=== PATIENT | female | born 1975 | race Caucasian/White ===

== ENCOUNTER → 2020-06-08 | Outpatient (CLI) | payer OTHER ==
--- NOTE | 2020-06-08 17:29 | RAD ---
EXAM: Bilateral wrists, 3 views. HISTORY: Pain. COMPARISON: None. FINDINGS: 3 views of both wrists are obtained. There is no fracture, dislocation or subluxation. IMPRESSION: No acute osseous finding. Electronically signed by: Ernestina James MD (06/08/2020 5:27 PM) [id number]
== END ==
LOC: DXRAD 13:18
PROVIDERS: ATTEND Physician Assistant
DX: M25.532 Pain in left wrist (principal); M25.531 Pain in right wrist
CPT/HCPCS: 73110